=== PATIENT | male | born 1995 | race Caucasian/White ===

== ENCOUNTER 2017-08-04 23:45 | Inpatient (IN) | payer MEDICAID ==
[~2017-08-04] VITALS: Ht 165.1 cm; Wt 110.2 kg
[~2017-08-04 23:45] MED LIST: AZITHROMYCIN250 MG ORAL; PROAIR HFA8.5 GM INH
[2017-08-05] VITALS (7 sets, daily range): BP systolic 102–146; BP diastolic 66–91
[2017-08-05 01:02] LABS: APPEARANCE,URINE CLEAR; BILIRUBIN, URINE NEGATIVE (NEGATIVE); COLOR,URINE PALE YELLOW; GLUCOSE, URINE (UA) 4+ (NEGATIVE); KETONES,URINE 2+ (NEGATIVE); LEUKOCYTE ESTERASE ,URINE NEGATIVE (NEGATIVE); NITRITE,URINE NEGATIVE (NEGATIVE); PH,URINE 5 (4.5-8.0); PROTEIN,URINE NEGATIVE (NEGATIVE); UROBILINOGEN,URINE NORMAL MG/DL (0.0-1.0)
[2017-08-05 02:01] LABS: ALANINE AMINOTRANSFERASE 96 U/L (12-78); ALBUMIN 4.7 G/DL (3.4-5.0); ALBUMIN/GLOBULIN RATIO 1.1 (1.0-2.7); ALKALINE PHOSPHATASE 219 U/L (46-116); ANION GAP 14 mmol/L (5-15); ASPARTATE AMINO TRANSFERASE 35 U/L (15-37); BILIRUBIN,TOTAL 1.3 MG/DL (0.2-1.0); BLOOD UREA NITROGEN 26 mg/dL (7-18); CALCIUM 9.6 MG/DL (8.5-10.1); CARBON DIOXIDE 26 MMOL/L (21-32); CHLORIDE 90 MMOL/L (98-107); CREATININE 1.3 MG/DL (0.55-1.30); POTASSIUM 3.6 MMOL/L (3.5-5.1); SODIUM 129 MMOL/L (136-145)
[2017-08-05 02:06] LABS: BILIRUBIN,DIRECT 0.2 MG/DL (0.0-0.3)
[2017-08-05 02:22] LABS: BASOPHILS % (AUTO) 0.5 % (0.0-2.0); EOSINOPHILS % (AUTO) 1.3 % (0.0-3.0); LYMPHOCYTES % (AUTO) 25.2 % (20.0-45.0); MONOCYTES % (AUTO) 6.9 % (1.0-10.0); NEUTROPHILS % (AUTO) 66.1 % (45.0-75.0); PLATELET COUNT 253 K/UL (150-450); RED CELL DISTRIBUTION WIDTH 10.6 % (11.6-14.8); WHITE BLOOD COUNT 10.6 K/UL (4.8-10.8)
[2017-08-05 02:28] LABS: HEMOGLOBIN 17.7 G/DL (14.2-18.0)
[2017-08-05 02:29] LABS: HEMATOCRIT 53.7 % (42.0-52.0); MEAN CORPUSCULAR VOLUME 94 FL (80-99)
--- NOTE | 2017-08-05 02:43 | Emergency Room Report ---
History of Present Illness General Chief Complaint: Male Urogenital Problems Source: Patient Present Illness HPI Patient is a 21-year-old male who presented after increased urinary frequency as well as increased thirst. Patient gradual onset of symptoms. Patient states that his been feeling dizzy and has had decreased appetite. Patient reports having intermittent episodes with some epigastric pain. He denies any vomiting. He denies any diarrhea. He reports having approximately 2 L of soda a day. He does not take any medications currently. Allergies: Coded Allergies: No Known Allergies (Unverified , 06/10/14) Patient History Past Medical History: see triage record Reviewed Nursing Documentation: PMH: Agreed; PSxH: Agreed Nursing Documentation-PMH Past Medical History: No Stated History Review of Systems All Other Systems: negative except mentioned in HPI Physical Exam Vital Signs Date Time Temp Pulse Resp B/P (MAP) Pulse Ox O2 Delivery O2 Flow Rate FiO2 08/04/17 23:50 98.0 101 16 126/88 94 Room Air 98.1 Sp02 EP Interpretation: reviewed, normal General Appearance: normal inspection, well appearing, no apparent distress, alert, GCS 15, obese Head: atraumatic ENT: normal ENT inspection, hearing grossly normal, normal voice, dry mucus membranes Neck: normal inspection, full range of motion, supple, no bony tend Respiratory: normal inspection, lungs clear, normal breath sounds, no respiratory distress, no retraction, no wheezing Cardiovascular #1: regular rate, rhythm, no edema Gastrointestinal: normal inspection, normal bowel sounds, non tender, soft, no guarding, no hernia Genitourinary: no CVA tenderness Musculoskeletal: normal inspection, back normal, normal range of motion Neurologic: normal inspection, alert, oriented x3, responsive, statistical reporting analyst III-XII nml as tested, speech normal Psychiatric: normal inspection, judgement/insight normal, mood/affect normal Skin: normal inspection, normal color, no rash Medical Decision Making Diagnostic Impression: Primary Impression: Diabetes mellitus, new onset Additional Impression: Dehydration ER Course Patient presented for increased urination. Differential diagnosis included was not limited to diabetes, urinary tract infection, pancreatitis, gastroenteritis among others.Because of complexity of patient's case laboratory testing and imaging studies were ordered. The patient's initial blood sugar was noted to be high. The laboratory testing showed initial sugar of 634. The patient was started on IV fluids. The laboratory testing was notable for negative serum ketones. Dr. Leonardo Parada was contacted for inpatient management. Labs Test 08/04/17 23:54 08/05/17 01:00 08/05/17 01:14 Urine Color Pale yellow Urine Appearance Clear Urine pH 5 (4.5-8.0) Urine Specific [place] 1.010 (1.005-1.035) Urine Protein Negative (NEGATIVE) Urine Glucose (UA) 4+ (NEGATIVE) Urine Ketones 2+ (NEGATIVE) Urine Occult Blood Negative (NEGATIVE) Urine Nitrite Negative (NEGATIVE) Urine Bilirubin Negative (NEGATIVE) Urine Urobilinogen Normal MG/DL (0.0-1.0) Urine Leukocyte Esterase Negative (NEGATIVE) White Blood Count 10.6 K/UL (4.8-10.8) Red Blood Count 5.90 M/UL (4.70-6.10) Hemoglobin 17.7 G/DL (14.2-18.0) Hematocrit 53.7 % (42.0-52.0) Mean Corpuscular Volume 94 FL (80-99) Mean Corpuscular Hemoglobin 29.0 PG (27.0-31.0) Mean Corpuscular Hemoglobin Concent 32.0 G/DL (32.0-36.0) Red Cell Distribution Width 10.6 % (11.6-14.8) Platelet Count 253 K/UL (150-450) Mean Platelet Volume 16.4 FL (6.5-10.1) Neutrophils (%) (Auto) 66.1 % (45.0-75.0) Lymphocytes (%) (Auto) 25.2 % (20.0-45.0) Monocytes (%) (Auto) 6.9 % (1.0-10.0) Eosinophils (%) (Auto) 1.3 % (0.0-3.0) Basophils (%) (Auto) 0.5 % (0.0-2.0) Sodium Level 129 MMOL/L (136-145) Potassium Level 3.6 MMOL/L (3.5-5.1) Chloride Level 90 MMOL/L (98-107) Carbon Dioxide Level 26 MMOL/L (21-32) Anion Gap 14 mmol/L (5-15) Blood Urea Nitrogen 26 mg/dL (7-18) Creatinine 1.3 MG/DL (0.55-1.30) Estimat Glomerular Filtration Rate > 60 mL/min (>60) Glucose Level 634 MG/DL (74-106) Calcium Level 9.6 MG/DL (8.5-10.1) Magnesium Level 2.1 MG/DL (1.8-2.4) Total Bilirubin 1.3 MG/DL (0.2-1.0) Direct Bilirubin 0.2 MG/DL (0.0-0.3) Aspartate Amino Transf (AST/SGOT) 35 U/L (15-37) Alanine Aminotransferase (ALT/SGPT) 96 U/L (12-78) Alkaline Phosphatase 219 U/L (46-116) Total Protein 9.0 G/DL (6.4-8.2) Albumin 4.7 G/DL (3.4-5.0) Globulin 4.3 g/dL Albumin/Globulin Ratio 1.1 (1.0-2.7) Acetone Level Negative (NEGATIVE) EKG Diagnostic Results Rate: normal Rhythm: NSR ST Segments: no acute changes ASA given to the pt in ED: No Rhythm Strip Diag. Results EP Interpretation: yes Rhythm: NSR, no PVC's, no ectopy Last Vital Signs Date Time Temp Pulse Resp B/P (MAP) Pulse Ox O2 Delivery O2 Flow Rate FiO2 08/05/17 02:27 97 19 121/84 96 Room Air 08/05/17 00:00 98.1 98.1 Status: improved Disposition: ADMITTED INPATIENT Condition: Serious Referrals: NOT CHOSEN IPA/,REFERRING (PCP) Mir Potter August 05, 2017 02:43
[2017-08-05] MEDS ORDERED: NovoLOG Insulin Flexpen SUBQ SCH (06:30)
[2017-08-05] MEDS: Docusate 100mg cap ORAL SCH ×2 (08:29→20:00)
[2017-08-05 11:24] LABS: ANION GAP 12 mmol/L (5-15); BLOOD UREA NITROGEN 16 mg/dL (7-18); CARBON DIOXIDE 25 MMOL/L (21-32); CHLORIDE 98 MMOL/L (98-107); POTASSIUM 4.2 MMOL/L (3.5-5.1); SODIUM 135 MMOL/L (136-145)
[2017-08-05] MEDS: Levemir Flexpen SUBQ SCH (12:22)
[2017-08-05] MEDS: NovoLOG Insulin Flexpen SUBQ SCH ×5 (12:22→20:00)
--- NOTE | 2017-08-05 18:15 | History and Physical Report ---
DATE OF ADMISSION: 08/05/2017 REASON FOR ADMISSION: 1. New onset diabetes. 2. Dehydration. 3. Acute kidney injury. 4. Hypertension. HISTORY OF PRESENT ILLNESS: The patient is a 21-year-old obese gentleman, in nature, who presented to the emergency room for several days of increasing thirst and frequency of urination. The patient says that he does not have a history of diabetes in his family. However, he has noted that he is eating a lot of carbohydrates and was drinking approximately 2 liters of regular sugary soda a day and over the last several days, he started to urinate quite frequently and get thirsty. Upon presentation into the emergency room, it was noted that the patient was hyperglycemic. He was not on any medications. His sugar at that time upon presentation was 634. PAST SURGICAL HISTORY: None. HOME MEDICATIONS: None. ALLERGIES: No known drug allergies. FAMILY HISTORY: Positive for hypertension. REVIEW OF SYSTEMS: NEUROLOGIC: The patient denies headache, change in vision, syncope, or presyncopal episodes. CARDIOVASCULAR: No current chest pain, palpitations, or angina. PULMONARY: No difficulty breathing, productive cough, or sputum. GASTROINTESTINAL/GENITOURINARY: The patient was having increased thirst and urination. No nausea, vomiting, or diarrhea. ENDOCRINOLOGY: No night sweats, fevers, or chills. MUSCULOSKELETAL: The patient is feeling weak, tired, and fatigued. PHYSICAL EXAMINATION: VITAL SIGNS: Blood pressure 147/56, temperature 97.6, and 96% oxygen saturation on room air. GENERAL: The patient is awake, alert, and not otherwise in any distress. HEENT: Extraocular muscles intact. No lymphadenopathy noted. CARDIOVASCULAR: S1, S2. No rubs or gallops. PULMONARY: Clear to auscultation bilaterally. No rales, rhonchi, or wheezes. ABDOMEN: Nondistended, nontender, and obese. EXTREMITY: No edema. Fair pedal pulses. LABORATORY DATA: Laboratories dated 08/05/2017 at 1 a.m., sodium 129, potassium 3.6, BUN 26, creatinine 1.3, and magnesium 2.1. AST 35 and ALT 96. Albumin 4.7. Hemoglobin 17.7, white cell count 10.6, and platelet count 253,000. ASSESSMENT AND PLAN: 1. New onset diabetes mellitus type 2, obesity related. Long discussion with the patient on decreasing caloric intake as well as decreasing carbohydrate intake. Dietary nutrition ADA diet consultation has been placed. The patient has been initiated on metformin. Continue insulin sliding scale and aggressive hydration. We will also consult Endocrinology so the patient can establish outpatient follow up. 2. Hypertension. At this time, we will start Norvasc 5 mg daily. 3. DVT prophylaxis. At this time, the patient is ambulatory. Encouraging to ambulate during his hospitalization. Leonardo Parada MD DR: HARISH JOB#: [id number] CC:
--- NOTE | 2017-08-05 23:45 | Consultation ---
DATE OF CONSULTATION: 08/05/2017 ENDOCRINOLOGY CONSULTATION CONSULTING PHYSICIAN: Apolinar Truong M.D. REFERRING PHYSICIAN: Jero Birch M.D. REASON FOR CONSULTATION: New onset diabetes. HISTORY OF PRESENT ILLNESS: The patient is a 21-year-old male, obese without any past medical history, presented to the hospital with polyuria and polydipsia on presentation with glucose of 634 without evidence of diabetic ketoacidosis. He was admitted to the floor for observation and treatment. I was called to manage his diabetes. PAST MEDICAL HISTORY: None. PAST SURGICAL HISTORY: None. MEDICATIONS: At home, none. SOCIAL HISTORY: No smoking, alcohol, or drug use. He works in a gas station. FAMILY HISTORY: Negative for diabetes. REVIEW OF SYSTEMS: As per HPI. PHYSICAL EXAMINATION: GENERAL: Awake and alert. VITAL SIGNS: Blood pressure 149/91, pulse 113, temperature 97.5, and respiratory rate of 20. HEENT: Pupils are equal and reactive to light. Sclerae are anicteric. NECK: No JVD. Positive for acanthosis nigricans. HEART: Regular. LUNGS: Clear. ABDOMEN: Positive bowel sounds. EXTREMITIES: No clubbing, cyanosis, or edema. LABORATORY DATA: Sodium 129, potassium 3.6, chloride 90, bicarbonate 26, BUN 26, creatinine 1.2, and glucose 634. DIAGNOSES: 1. New-onset diabetes, most likely type 2. 2. No evidence of ketoacidosis. PLAN: 1. Continue metformin maximum dose. 2. Start Levemir 30 units daily. 3. Start NovoLog 10 units before each meal. 4. Continue NovoLog sliding scale before meals and at bedtime. 5. Check hemoglobin A1c. 6. The patient should be able to go home tomorrow, but he will stay on insulin shots after discharge. We will follow him during the stay. Thank you, Dr. Birch, for the courtesy of this consultation. Apolinar Truong M.D. DR: JODY JOB#: [id number] CC:
[2017-08-06] VITALS: BP 118/72
[2017-08-06 04:00] VITALS: BP 132/66
[2017-08-06] MEDS: NovoLOG Insulin Flexpen SUBQ SCH ×4 (06:31→12:17)
[2017-08-06 08:00] VITALS: BP 128/66
[2017-08-06 08:20] LABS: BASOPHILS % (AUTO) 0.7 % (0.0-2.0); EOSINOPHILS % (AUTO) 2.1 % (0.0-3.0); HEMATOCRIT 42.5 % (42.0-52.0); HEMOGLOBIN 14.8 G/DL (14.2-18.0); LYMPHOCYTES % (AUTO) 23.4 % (20.0-45.0); MEAN CORPUSCULAR VOLUME 85 FL (80-99); MONOCYTES % (AUTO) 5.8 % (1.0-10.0); PLATELET COUNT 208 K/UL (150-450); RED BLOOD COUNT 4.99 M/UL (4.70-6.10); RED CELL DISTRIBUTION WIDTH 11.1 % (11.6-14.8); WHITE BLOOD COUNT 7.2 K/UL (4.8-10.8)
[2017-08-06] MEDS: Levemir Flexpen SUBQ SCH (08:37)
[2017-08-06] MEDS: Docusate 100mg cap ORAL SCH (08:37)
[2017-08-06 08:54] LABS: ANION GAP 8 mmol/L (5-15); BLOOD UREA NITROGEN 12 mg/dL (7-18); CALCIUM 8.1 MG/DL (8.5-10.1); CARBON DIOXIDE 27 MMOL/L (21-32); CHLORIDE 103 MMOL/L (98-107); CREATININE 0.9 MG/DL (0.55-1.30); POTASSIUM 4.1 MMOL/L (3.5-5.1); SODIUM 137 MMOL/L (136-145)
[2017-08-06] MEDS ORDERED: NORVASC5 MG ORAL (10:59)
[2017-08-06] MEDS ORDERED: METFORMIN HCL1000 M1 ORAL (11:00)
[2017-08-06] MEDS ORDERED: LEVEMIR100 UNIT/1 SUBQ (11:01)
[2017-08-06] MEDS ORDERED: NOVOLOG100 UNIT/3 SUBQ ×2 (11:02→11:03)
--- NOTE | 2017-08-06 11:18 | General Progress Note ---
Assessment/Plan Problem List: (1) Diabetes mellitus, new onset ICD Codes: E11.9 - Type 2 diabetes mellitus without complications SNOMED: [id number], [id number] Assessment/Plan continue current insulin + Metformin regimen stable for DC home from endo stand point Subjective Allergies: Coded Allergies: No Known Allergies (Unverified , 06/10/14) All Systems: reviewed and negative except above Subjective glucose values improved Objective Last 24 Hour Vital Signs Date Time Temp Pulse Resp B/P (MAP) Pulse Ox O2 Delivery O2 Flow Rate FiO2 08/06/17 08:37 72 128/66 08/06/17 08:00 97.1 72 20 128/66 98 97.1 08/06/17 04:00 97.5 69 20 132/66 98 97.5 08/06/17 00:00 97.9 78 21 118/72 96 97.9 08/05/17 20:00 98.1 85 21 102/66 98 98.1 08/05/17 16:00 98.6 72 20 136/87 97 Room Air 98.6 08/05/17 12:00 97.1 78 20 124/86 95 Room Air 97.1 08/05/17 11:42 113 146/91 Intake and Output 08/05/17 08/06/17 19:00 07:00 Intake Total 1935 ml 1375 ml Balance 1935 ml 1375 ml Intake Oral 560 ml IV Total 1375 ml 1375 ml # Voids 4 2 Laboratory Tests 08/06/17 06:20: Sodium Level 137, Potassium Level 4.1, Chloride Level 103, Carbon Dioxide Level 27, Anion Gap 8, Blood Urea Nitrogen 12, Creatinine 0.9, Estimat Glomerular Filtration Rate > 60, Glucose Level 283#H, Calcium Level 8.1L 08/06/17 08:10: White Blood Count 7.2, Red Blood Count 4.99, Hemoglobin 14.8, Hematocrit 42.5, Mean Corpuscular Volume 85#, Mean Corpuscular Hemoglobin 29.7, Mean Corpuscular Hemoglobin Concent 35.0, Red Cell Distribution Width 11.1L, Platelet Count 208, Mean Platelet Volume 12.6H, Neutrophils (%) (Auto) 68.0, Lymphocytes (%) (Auto) 23.4, Monocytes (%) (Auto) 5.8, Eosinophils (%) (Auto) 2.1, Basophils (%) (Auto ) 0.7 Height (Feet): 5 Height (Inches): 5.00 Weight (Pounds): 243 General Appearance: no apparent distress Neck: normal alignment Cardiovascular: normal rate Respiratory/Chest: lungs clear Abdomen: normal bowel sounds Pelvis: normal external exam Objective Current Medications Medications (Trade) Dose Ordered Sig/Cy Route PRN Reason Start Time Stop Time Status Last Admin Dose Admin Acetaminophen (Tylenol) 650 mg Q4H PRN ORAL Mild Pain (Pain Scale 1-3) 08/05/17 02:45 09/04/17 02:44 Amlodipine Besylate (Norvasc) 5 mg DAILY ORAL 08/05/17 09:30 09/04/17 09:29 08/06/17 08:37 Dextrose (Dextrose 50%) 25 ml STAT PRN IV Hypoglycemia 08/05/17 10:30 09/04/17 10:29 Dextrose (Dextrose 50%) 50 ml STAT PRN IV Hypoglycemia 08/05/17 10:30 09/04/17 10:29 Diphenhydramine HCl (Benadryl) 25 mg Q6H PRN ORAL Itching/Pruritis 08/05/17 02:45 09/04/17 02:44 Docusate Sodium (Colace) 100 mg EVERY 12 HOURS ORAL 08/05/17 09:00 09/04/17 08:59 08/06/17 08:37 Famotidine (Pepcid) 40 mg DAILY ORAL 08/05/17 09:00 09/04/17 08:59 08/06/17 08:37 Insulin Aspart (NovoLOG) BEFORE MEALS AND HS SUBQ 08/05/17 11:30 09/04/17 11:29 08/06/17 06:31 Insulin Aspart (NovoLOG) 10 units NOVOTIAC SUBQ 08/05/17 11:50 09/04/17 11:49 08/06/17 06:31 Insulin Detemir (Levemir) 30 units DAILY SUBQ 08/05/17 11:30 09/04/17 11:29 08/06/17 08:37 Metformin HCl (Glucophage) 850 mg TID@0800,1300,1800 ORAL 08/05/17 08:30 09/04/17 08:29 08/06/17 08:36 Ondansetron HCl (Zofran) 4 mg Q6H PRN IVP Nausea & Vomiting 08/05/17 02:45 09/04/17 02:44 Sodium Chloride 1,000 ml @ 125 mls/hr Q8H IVLG 08/05/17 03:41 09/04/17 03:40 08/06/17 03:30 Item Value Date Time Bedside Blood Glucose 279 mg/dl H 08/06/17 0837 Bedside Blood Glucose 279 mg/dl H 08/06/17 0637 Bedside Blood Glucose 222 mg/dl H 08/05/17 2027 Bedside Blood Glucose 260 mg/dl H 08/05/17 1656 Bedside Blood Glucose 354 mg/dl H 08/05/17 1223 MYRNA POMPA August 06, 2017 11:18
--- NOTE | 2017-08-06 11:50 | Cardiology Report ---
APPROVED REPORT EKG Measurement Heart [id number] SD [id number] Normal sinus rhythm with sinus arrhythmia Right axis deviation Incomplete right bundle branch block Possible Right ventricular hypertrophy Abnormal ECG
[2017-08-06 11:54] VITALS: BP 135/70
--- NOTE | 2017-08-06 20:45 | Discharge Summary ---
DATE OF ADMISSION: 08/05/2017 DATE OF DISCHARGE: 08/06/2017 DISPOSITION AT DISCHARGE: Stable. HOSPITAL COURSE: The patient was admitted overnight from the ER for new onset polydipsia, polyuria with newly diagnosed hyperglycemia/diabetes mellitus type 2. The patient is obese. The patient was very thirsty and peeing a lot prior to his presentation in the emergency room. He was aggressively hydrated over 24 hours and started on insulin and metformin. The patient is doing much better. Has seen the hydrator operator and is stable for discharge. LABORATORY DATA: Labs at the time of discharge, sodium 137, potassium 4.1, glucose 283, BUN 12, creatinine 0.9. Hemoglobin 14.8, white cell count 7.2, platelet count 208. DISCHARGE MEDICATIONS: 1. Norvasc 5 milligrams daily. 2. Metformin 1 gram 3 times a day. 3. Levemir 30 units subcutaneous daily. 4. NovoLog 10 units before each meal. FOLLOWUP INSTRUCTIONS: 1. The patient was given diabetic education and to follow up with hydrator operator. 2. The patient is applying for [facility] and will then follow up with the primary care physician. Leonardo Parada MD DR: Ludivina JOB#: [id number] CC: JORGE
--- NOTE | 2017-08-08 13:46 | Discharge Summary ---
Discharge Summary Discharge Summary Discharge Summary ADDENDUM DISCHARGE DIAGNOSIS Diabetes mellitus, new onset Dehydration Acute kidney injury Hypertension Vin (Shilpagt)Nasra NP August 08, 2017 13:46
== END 2017-08-06 12:57 | disposition home or self-care (01) | DRG 420 ==
LOC: EMR 08-05 00:35 → 4E 08-05 02:03 → EDBEDREQSVC 08-05 02:07 → EDBEDREQ 08-05 02:40
DX: E11.65 Type 2 diabetes mellitus with hyperglycemia (principal); N17.9 Acute kidney failure, unspecified; E86.0 Dehydration; Z68.41 Body mass index [BMI] 40.0-44.9, adult; I10 Essential (primary) hypertension; E66.9 Obesity, unspecified
CPT/HCPCS: 36415; 80048; 80053; 81003; 82009; 82248; 82962; 83036; 83735; 85025; 93005; 99285; J1815; S5561

== ENCOUNTER 2018-10-09 07:39 | Emergency (ER) | payer SELFPAY ==
[~2018-10-09] VITALS: Ht 167.6 cm; Wt 99.8 kg
[~2018-10-09 07:39] MED LIST changes: +LEVEMIR100 UNIT/1 SUBQ; +METFORMIN HCL1000 M1 ORAL; +NORVASC5 MG ORAL; +NOVOLOG100 UNIT/3 SUBQ
[2018-10-09 07:50] VITALS: BP 138/86
--- NOTE | 2018-10-09 07:53 | NUR ---
ED Nurse Note: Patient walked in to ER from home due to unable to pull foreskin for last 5 days. pt aao x4 and ambulatory. skin clean and intact. pt calm and cooperative.
[2018-10-09] MEDS ORDERED: FLUCONAZOLE100 MG ORAL (08:33)
[2018-10-09] MEDS ORDERED: CLOTRIMAZOLE15 GM TOPIC (08:33)
[2018-10-09] MEDS ORDERED: METFORMIN HCL500 M1 ORAL (08:34)
--- NOTE | 2018-10-09 08:39 | NUR ---
ED Nurse Note: ERMD at bedside discussing with pt regarding dc plan.
[2018-10-09 08:50] VITALS: BP 138/86
--- NOTE | 2018-10-09 08:50 | NUR ---
ER DISCHARGE NOTE: Patient is cleared to be discharged per ERMD after accu check done and reported to ERMD, pt is aox4, on room air, with stable vital signs. pt was given dc and prescription instructions, pt was able to verbalize understanding, pt id band removed. pt is able to ambulate with steady gait. pt took all belongings.
--- NOTE | 2018-10-09 08:52 | Emergency Room Report ---
History of Present Illness General Chief Complaint: Male Urogenital Problems Source: Patient Present Illness HPI Patient presents emergency department today complaint discharge to his penis. Patient states that he has a history of diabetes. He was told that he had glucose greater than 700 on his last visit about a year ago. Since then he is lost about 50 pounds and states that he is try to manage his sugar without medications. He complains of occasional urinary frequency but states that that significantly improved. He here today because he has discharge coming from his penis. He noticed some whitish discharge or flaking near the head of his penis underneath his foreskin. Patient is not circumcised. Patient also complains of mild itching in this area. Denies any penile discharge. Denies any lymphadenopathy or testicular pain testicular swelling. Symptoms noted to be moderate. No other modifying factors. No other associated signs and symptoms. No other complaints were noted. Allergies: Coded Allergies: No Known Allergies (Unverified , 06/10/14) Patient History Past Medical History: DM Past Surgical History: none Pertinent Family History: none Social History: Denies: smoking, alcohol use, drug use Reviewed Nursing Documentation: PMH: Agreed; PSxH: Agreed Nursing Documentation-PMH Past Medical History: No History, Except For Hx Cardiac Problems: No Hx Diabetes: Yes - Type 2 Hx Cancer: No Hx Gastrointestinal Problems: No Review of Systems All Other Systems: negative except mentioned in HPI Physical Exam Vital Signs Date Time Temp Pulse Resp B/P (MAP) Pulse Ox O2 Delivery O2 Flow Rate FiO2 10/09/18 07:44 98.4 69 20 138/86 (103) 97 Room Air Sp02 EP Interpretation: reviewed, normal General Appearance: normal inspection, well appearing, no apparent distress, alert Head: atraumatic Eyes: bilateral eye normal inspection ENT: normal ENT inspection, hearing grossly normal, normal voice Neck: normal inspection, full range of motion, supple, no bony tend Respiratory: normal inspection, lungs clear, normal breath sounds, no respiratory distress, no retraction, no wheezing Cardiovascular #1: regular rate, rhythm, no edema Gastrointestinal: normal inspection, normal bowel sounds, non tender, soft, no guarding, no hernia Genitourinary: no CVA tenderness, other - Normal external male genitalia. Patient is not circumcised. Evidence of whitish flaky discharge underneath the foreskin and around the area of the penile head. Musculoskeletal: normal inspection, back normal, normal range of motion Neurologic: normal inspection, alert, responsive, speech normal Psychiatric: normal inspection, judgement/insight normal, mood/affect normal Medical Decision Making Diagnostic Impression: Primary Impression: Balanitis Additional Impression: Hyperglycemia ER Course Patient presents emergency department today complaining of discharge in the penile head. Differential considerations include sexually transmitted disease. Balanitis. Posthitis. Just name few. Patient's exam consistent with balanitis. Patient was given prescription for fungal antibiotic and topical fungal antibiotic. Patient Accu-Chek was approximately 300. There is no evidence of DKA. However patient is advised that he will need to take medications for sugar. He was given a prescription for metformin. Patient was given referral to local clinics and free clinics. Patient is advised to follow up with primary doctor in 2-3 days and return the emergency room for any worsening symptoms and as needed. Last Vital Signs Date Time Temp Pulse Resp B/P (MAP) Pulse Ox O2 Delivery O2 Flow Rate FiO2 10/09/18 07:50 98.4 80 20 138/86 97 Room Air Status: improved Disposition: HOME, SELF-CARE Condition: Stable Scripts Metformin Hcl* (METFORMIN HCL*) 500 Mg Tablet 500 MG ORAL TWICE A DAY for 30 Days, TAB Prov: Dov Chakraborty MD 10/09/18 Clotrimazole* (LOTRIMIN*) 15 Gm Cream..g. 1 APPLIC TOPIC TWICE A DAY for 14 Days, GM Prov: Dov Chakraborty MD 10/09/18 Fluconazole (FLUCONAZOLE) 100 Mg Tablet 100 MG ORAL DAILY, #7 TAB 0 Refills Prov: Dov Chakraborty MD 10/09/18 Patient Instructions: Hyperglycemia, [id number] Jeffrey MD Oct 09, 2018 08:52
== END 2018-10-09 08:50 | disposition home or self-care (01) ==
LOC: EMR 08:05
DX: N48.1 Balanitis (principal); E11.65 Type 2 diabetes mellitus with hyperglycemia
CPT/HCPCS: 82962; 99282

== ENCOUNTER 2019-07-29 13:36 | Emergency (ER) | payer OTHER ==
[~2019-07-29] VITALS: Ht 167.6 cm; Wt 102.1 kg
[~2019-07-29 13:36] MED LIST changes: +CLOTRIMAZOLE15 GM TOPIC; +FLUCONAZOLE100 MG ORAL; +METFORMIN HCL500 M1 ORAL
[2019-07-29 14:13] VITALS: BP 128/77
--- NOTE | 2019-07-29 14:17 | NUR ---
ED Nurse Note:pt. had mechanical fall 2 days ago and has abrasion on left forehead and bump on the back of his head, seen by ERMD, no bleeding at this time
--- NOTE | 2019-07-29 14:59 | Diagnostic Imaging Report ---
Indications: Head trauma after fall Technique: Spiral acquisitions obtained through the brain. Angled axial and coronal 5 x 5 mm slices were reconstructed. Total dose length product 1098 mGycm. CTDI vol(s) 50 mGy. Dose reduction achieved using automated exposure control Comparison: None. Findings: There is a left parietal scalp contusion. No underlying calvarial trauma. Normal size ventricles and extra-axial CSF spaces. Normal dunn-white differentiation. No acute intracranial hemorrhage or edema. No mass effect nor midline shift. Impression: Evidence of left parietal scalp soft tissue trauma Negative for acute intracranial bleed or mass effect The CT scanner at [facility] is accredited by the [employer] and the scans are performed using protocols designed to limit radiation exposure to as low as reasonably achievable to attain images of sufficient resolution adequate for diagnostic evaluation.
[2019-07-29 15:00] VITALS: BP 128/77
--- NOTE | 2019-07-29 15:00 | NUR ---
ER DISCHARGE NOTE: Patient is cleared to be discharged per ERMD, pt is aox4, on room air, with stable vital signs. pt was given dc and prescription instructions, pt was able to verbalize understanding, pt is able to ambulate with steady gait. pt took all belongings.
[2019-07-29] MEDS ORDERED: IBUPROFEN600 M1 ORAL (15:03)
--- NOTE | 2019-07-29 15:03 | Emergency Room Report ---
History of Present Illness General Chief Complaint: Head Injury Source: Patient Present Illness HPI 23-year-old male with history of type 2 diabetes who used to take metformin about a year ago and now has been exercising every day here complaining of headache after a fall that occurred 2 days ago. Patient reports that he has some alcohol and was skateboarding without a helmet 2 days ago as he fell landed on the occipital region and rolled over the left frontal and obvious bruising noted. Reports that he blacked out according to his friends, reports that he was fine up until today as he started having little bit of a headache. Has been taking Tylenol. Denies any blurry vision, nausea vomiting, fatigue, memory loss. Denies any dizziness at this time. Sitting comfortably see vital signs. Pupils are within normal limits. Denies all other injuries. Reports that he has been having his normal routine since then has not consumed any alcohol, has been eating okay. Neurovascularly intact. Also reports that he has not been seen by his doctor in over a year and wants to know if he can get a complete blood work done just to see where he stands in terms of his diabetes as he has been exercising every day and not taking medication. Advised him that that needs to be done by primary care provider at this time as patient reported that his Accu-Chek is normal at home and needs further work-up per request of primary doctor. Allergies: Coded Allergies: No Known Allergies (Unverified , 06/10/14) COVID-19 Screening Contact w/high risk pt: No Recent Travel to affected area: No Experienced COVID-19 symptoms?: No Patient History Past Medical History: see triage record Past Surgical History: none Pertinent Family History: none Reviewed Nursing Documentation: PMH: Agreed; PSxH: Agreed Nursing Documentation-PMH Past Medical History: No History, Except For Hx Cardiac Problems: No Hx Diabetes: Yes - Type 2 Hx Cancer: No Hx Gastrointestinal Problems: No Review of Systems All Other Systems: negative except mentioned in HPI Physical Exam Vital Signs Date Time Temp Pulse Resp B/P (MAP) Pulse Ox O2 Delivery O2 Flow Rate FiO2 07/29/19 13:53 98.4 96 18 128/77 (94) 99 Room Air Sp02 EP Interpretation: reviewed, normal General Appearance: no apparent distress, alert, GCS 15, non-toxic Head: normocephalic, other - Bruising noted left frontal and occipital Eyes: bilateral eye normal inspection, bilateral eye PERRL ENT: hearing grossly normal, normal pharynx, no angioedema, normal voice Neck: full range of motion, supple/symm/no masses Respiratory: chest non-tender, lungs clear, normal breath sounds, no rhonchi, no wheezing, speaking full sentences Cardiovascular #1: regular rate, rhythm, no edema, no murmur Gastrointestinal: normal bowel sounds, non tender, soft, non-distended, no guarding, no rebound Rectal: deferred Musculoskeletal: back normal Neurologic: alert, motor strength/tone normal, oriented x3, sensory intact, responsive, speech normal Psychiatric: judgement/insight normal, memory normal, mood/affect normal, no suicidal/homicidal ideation Skin: no rash Lymphatic: no adenopathy Medical Decision Making PA Attestation All my diagnosis and treatment plans were reviewed ad discussed with my supervising physician Dr. Garner Diagnostic Impression: Primary Impression: Head contusion ER Course 23-year-old male with history of type 2 diabetes who used to take metformin about a year ago and now has been exercising every day here complaining of headache after a fall that occurred 2 days ago. Patient reports that he has some alcohol and was skateboarding without a helmet 2 days ago as he fell landed on the occipital region and rolled over the left frontal and obvious bruising noted. Reports that he blacked out according to his friends, reports that he was fine up until today as he started having little bit of a headache. Has been taking Tylenol. Denies any blurry vision, nausea vomiting, fatigue, memory loss. Denies any dizziness at this time. Sitting comfortably see vital signs. Pupils are within normal limits. Denies all other injuries. Reports that he has been having his normal routine since then has not consumed any alcohol, has been eating okay. Neurovascularly intact. Also reports that he has not been seen by his doctor in over a year and wants to know if he can get a complete blood work done just to see where he stands in terms of his diabetes as he has been exercising every day and not taking medication. Advised him that that needs to be done by primary care provider at this time as patient reported that his Accu-Chek is normal at home and needs further work-up per request of primary doctor. Ddx considered but are not limited to: cerebral hematoma, concussion, skull fracture, head contusion Vital signs: are WNL, pt. is afebrile H&PE are most consistent with: head contusion ORDERS: head CT no contrast, Motrin ED INTERVENTIONS: None required at this time. DISCHARGE: At this time pt. is stable for d/c to home. Will provide printed patient care instructions, and any necessary prescriptions. Care plan and follow up instructions have been discussed with the patient prior to discharge. Patient to follow primary doctor, take medication as directed, if worsening symptoms such emergency room CT/MRI/US Diagnostic Results CT/MRI/US Diagnostic Results : Imaging Test Ordered: CT head no contrast Impression No intracranial bleed, no skull fracture, contusion noted left frontal lobe and parietal lobe Last Vital Signs Date Time Temp Pulse Resp B/P (MAP) Pulse Ox O2 Delivery O2 Flow Rate FiO2 07/29/19 14:13 98.4 18 128/77 99 Room Air 07/29/19 13:53 96 Disposition: HOME, SELF-CARE Condition: Stable Scripts Ibuprofen* (MOTRIN*) 600 Mg Tablet 600 MG ORAL FOUR TIMES A DAY, #30 TAB 0 Refills Prov: Yudy Aiken 07/29/19 Referrals: Wes LAWSON,REFERRING (PCP) Patient Instructions: Facial or Scalp Contusion, [id number] Additional Instructions: Take medication as directed, follow-up primary doctor, avoid long hours of screen time, also follow-up with primary doctor regarding your complete blood work and evaluation for diabetes and other medical condition since you have been exercising for a year and not taking metformin. At this time need a complete checkup by primary care doctor. Yudy Aiken Jul 29, 2019 15:03
== END 2019-07-29 15:20 | disposition home or self-care (01) ==
LOC: EMR 13:56
DX: S00.93XA Contusion of unspecified part of head, initial encounter (principal); E11.9 Type 2 diabetes mellitus without complications; Z79.84 Long term (current) use of oral hypoglycemic drugs; Y93.51 Activity, roller skating (inline) and skateboarding
CPT/HCPCS: 70450; Z7502; 99284

== ENCOUNTER 2020-02-24 11:45 | Emergency (ER) | payer OTHER ==
[~2020-02-24] VITALS: Ht 167.6 cm; Wt 106.6 kg
[~2020-02-24 11:45] MED LIST changes: +IBUPROFEN600 M1 ORAL
[2020-02-24 12:00] VITALS: BP 133/82
--- NOTE | 2020-02-24 12:10 | NUR ---
ED Nurse Note: patient from home and walked in due to headache, on and off fever at home with chills x 3-4 days. States he also had concussions a few months ago. Pt is AAO x4 and ambulatory with non labored breathing.
--- NOTE | 2020-02-24 12:23 | Emergency Room Report ---
History of Present Illness General Chief Complaint: Headache Source: Patient Present Illness HPI 24-year-old male with history of type 2 diabetes currently started on insulin here complaining of 1 week of continuous frontal headache and 1 week of fever. Patient reports that he was seen here few months ago for a concussion and had a head CT done which was negative. Patient has not followed primary doctor. Elaina nova was taking Metformin for many years and was recently put on insulin by primary doctor however after start of her his fever and elevated heart rate stopped taking it 3 days ago. Denies any tobacco smoke, drug use, alcohol intake. Reports that he is currently living with his brother who is positive for Covid however he has been isolating in his own room for 3 weeks. Denies cough or congestion, however complains of little bit of shortness of breath. Has not taken medication for symptom relief. Reports that few days ago he also started having few bouts of nonbloody diarrhea. Denies abdominal pain, nausea vomiting, photophobia. Denies blurred vision or other associate symptoms. Allergies: Coded Allergies: No Known Allergies (Unverified , 06/10/14) COVID-19 Screening Contact w/high risk pt: No Recent Travel to affected area: No Experienced COVID-19 symptoms?: Yes COVID-19 Testing performed [employer] PERSONALITY: No Patient History Past Medical History: see triage record Past Surgical History: none Pertinent Family History: none Reviewed Nursing Documentation: PMH: Agreed; PSxH: Agreed Nursing Documentation-PMH Past Medical History: No History, Except For Hx Cardiac Problems: No Hx Diabetes: Yes - Type 2 Hx Cancer: No Hx Gastrointestinal Problems: No Review of Systems All Other Systems: negative except mentioned in HPI Physical Exam Vital Signs Date Time Temp Pulse Resp B/P (MAP) Pulse Ox O2 Delivery O2 Flow Rate FiO2 02/24/20 12:00 99.7 110 16 133/82 (99) 93 Room Air Sp02 EP Interpretation: reviewed, abnormal - Low O2 sat and elevated heart rate General Appearance: alert, mild distress Head: normocephalic, atraumatic Eyes: bilateral eye normal inspection, bilateral eye PERRL ENT: hearing grossly normal, normal pharynx, no angioedema, normal voice Neck: full range of motion, supple/symm/no masses Respiratory: chest non-tender, lungs clear, normal breath sounds, speaking full sentences Cardiovascular #1: regular rate, rhythm, no edema Cardiovascular #2: 2+ carotid (R), 2+ carotid (L), 2+ radial (R), 2+ radial (L), 2+ dorsalis pedis (R), 2+ dorsalis pedis (L) Gastrointestinal: normal bowel sounds, non tender, soft, non-distended, no guarding, no rebound Rectal: deferred Genitourinary: no CVA tenderness Musculoskeletal: back normal, pelvis stable Neurologic: alert, motor strength/tone normal, oriented x3, sensory intact, responsive, speech normal Psychiatric: judgement/insight normal, memory normal, mood/affect normal, no suicidal/homicidal ideation Skin: no rash Lymphatic: no adenopathy Medical Decision Making PA Attestation All diagnoses and treatment plans were reviewed and discussed with my supervising physician Dr. Drake Diagnostic Impression: Primary Impression: Pneumonia Additional Impression: Diabetes type 2, uncontrolled ER Course 24-year-old male with history of type 2 diabetes currently started on insulin here complaining of 1 week of continuous frontal headache and 1 week of fever. Patient reports that he was seen here few months ago for a concussion and had a head CT done which was negative. Patient has not followed primary doctor. Patient was taking Metformin for many years and was recently put on insulin by primary doctor however after start of her his fever and elevated heart rate stopped taking it 3 days ago. Denies any tobacco smoke, drug use, alcohol intake. Reports that he is currently living with his brother who is positive for Covid however he has been isolating in his own room for 3 weeks. Denies cough or congestion, however complains of little bit of shortness of breath. Maloney s not taken medication for symptom relief. Reports that few days ago he also started having few bouts of nonbloody diarrhea. Denies abdominal pain, nausea vomiting, photophobia. Denies blurred vision or other associate symptoms. Denies neck stiffness Ddx considered but are not limited to: Coronavirus pneumonia, bronchitis, URI, migraine headache with aura, migraine headache without aura, tension headache, cluster headache, TBI, subarachnoid hemorrhage Vital signs: are WNL, pt. is afebrile H&PE are most consistent with: DMII uncontrolled, PNA possible Covid pneumonia Patient O2 sat was 99% upon discharge ORDERS: Chest x-ray, UA, tox screen, troponin, EKG, CBC, CMP, azithromycin, Tylenol ER intervention: NS bolus, Toradol, Rocephin DISCHARGE: At this time pt. is stable for d/c to home. Will provide printed patient care instructions, and any necessary prescriptions. Care plan and follow up instructions have been discussed with the patient prior to discharge. Take medication as directed, continue using your insulin, follow primary care provider, self isolate and get tested for Covid, if worsening symptoms return to the emergency room EKG Diagnostic Results Rate: normal Rhythm: NSR ST Segments: no acute changes Other Impression No acute ST changes ASA given to the pt in ED: No Chest X-Ray Diagnostic Results Chest X-Ray Diagnostic Results : Chest X-Ray Ordered: Yes # of Views/Limited/Complete: 1 View Indication: Chest Pain EP Interpretation: Yes JOSE Xray: Interpretation reviewed, by supervising MD, and agrees with findings. Interpretation: no effusion, no pneumothorax, other - Infiltrate seen left lower lobe Impression: Other - Pneumonia left upper lobe Electronically Signed by: Yudy Garrett PA-C Last Vital Signs Date Time Temp Pulse Resp B/P (MAP) Pulse Ox O2 Delivery O2 Flow Rate FiO2 02/24/20 12:00 99.7 110 16 133/82 93 Room Air Disposition: HOME, SELF-CARE Condition: Stable Patient Instructions: Community-Acquired Pneumonia, Adult, [id number], Diab etes Mellitus and Food Additional Instructions: Take medication as directed, continue using your insulin, follow primary care provider, self isolate and get tested for Covid, if worsening symptoms return to the emergency room Yudy Aiken Feb 24, 2020 12:23
[2020-02-24] MEDS ORDERED: Ketorolac 30mg Inj IV ONE (12:30)
--- NOTE | 2020-02-24 12:33 | NUR ---
ED Nurse Note: Collected blood then sent.
[2020-02-24 12:59] LABS: BASOPHILS % (AUTO) 0.5 % (0.0-2.0); EOSINOPHILS % (AUTO) 0.1 % (0.0-3.0); HEMATOCRIT 51.9 % (42.0-52.0); HEMOGLOBIN 17.1 G/DL (14.2-18.0); LYMPHOCYTES % (AUTO) 20.1 % (20.0-45.0); MEAN CORPUSCULAR VOLUME 88 FL (80-99); MONOCYTES % (AUTO) 7.7 % (1.0-10.0); NEUTROPHILS % (AUTO) 71.6 % (45.0-75.0); PLATELET COUNT 192 K/UL (150-450); RED BLOOD COUNT 5.87 M/UL (4.70-6.10); RED CELL DISTRIBUTION WIDTH 12.1 % (11.6-14.8); WHITE BLOOD COUNT 5.5 K/UL (4.8-10.8)
--- NOTE | 2020-02-24 13:03 | NUR ---
ED Nurse Note: X ray at bed side
[2020-02-24 13:18] LABS: ANION GAP 8 mmol/L (5-15); BLOOD UREA NITROGEN 8 mg/dL (7-18); CALCIUM 8.9 MG/DL (8.5-10.1); CARBON DIOXIDE 28 MMOL/L (21-32); CHLORIDE 95 MMOL/L (98-107); POTASSIUM 3.8 MMOL/L (3.5-5.1); SODIUM 131 MMOL/L (136-145)
[2020-02-24 13:23] LABS: ALANINE AMINOTRANSFERASE 59 U/L (12-78); ALBUMIN 3.9 G/DL (3.4-5.0); ALBUMIN/GLOBULIN RATIO 0.8 (1.0-2.7); ALKALINE PHOSPHATASE 92 U/L (46-116); ASPARTATE AMINO TRANSFERASE 30 U/L (15-37); BILIRUBIN,TOTAL 0.7 MG/DL (0.2-1.0)
[2020-02-24] MEDS ORDERED: TYLENOL EXTRA500 MG ORAL (13:44)
[2020-02-24] MEDS ORDERED: ZITHROMAX250 MG ORAL (13:44)
[2020-02-24] MEDS ORDERED: cefTRIAXone 1 GM in NS 55 ML IVPB ONE (13:45)
[2020-02-24 13:57] LABS: APPEARANCE,URINE SLIGHTLY CLOUDY; BILIRUBIN, URINE NEGATIVE (NEGATIVE); GLUCOSE, URINE (UA) 4+ (NEGATIVE); KETONES,URINE 3+ (NEGATIVE); LEUKOCYTE ESTERASE ,URINE 3+ (NEGATIVE); NITRITE,URINE NEGATIVE (NEGATIVE); PH,URINE 5 (4.5-8.0); PROTEIN,URINE 3+ (NEGATIVE); UROBILINOGEN,URINE NORMAL MG/DL (0.0-1.0)
[2020-02-24 14:03] VITALS: BP 134/84
--- NOTE | 2020-02-24 14:03 | NUR ---
ER DISCHARGE NOTE: Patient is cleared to be discharged per ERPA, pt is aox4, on room air, with stable vital signs. pt was given dc and prescription instructions, pt was able to verbalize understanding, pt id band and IV site removed without complications. pt is able to ambulate with steady gait. pt took all belongings.
[2020-02-24 14:04] LABS: COLOR,URINE YELLOW
--- NOTE | 2020-02-24 15:52 | Diagnostic Imaging Report ---
Indication: Shortness of breath Technique: One view of the chest Comparison: none Findings: There is consolidation in the retrocardiac region. The right lung and pleural space are clear. The left costophrenic angle is not well-demonstrated, pleural fluid possible. Impression: Retrocardiac consolidation, likely pneumonia. Small pleural effusion also possible
== END 2020-02-24 14:03 | disposition home or self-care (01) ==
LOC: EMR 13:40
DX: J18.9 Pneumonia, unspecified organism (principal); E11.9 Type 2 diabetes mellitus without complications; Z79.4 Long term (current) use of insulin
CPT/HCPCS: 36415; 71045; 80053; 80307; 81003; 84484; 85025; 87086; 96361; 96365; 96375; J0696; J1885; J7030; Z7502; 99284